=== PATIENT | female | born 1995 | race Caucasian/White ===

== ENCOUNTER 2024-07-19 17:50 | Emergency (ER) | payer MEDICAID, SELFPAY ==
[2024-07-19 17:51] VITALS: BP 154/95; PULSE 93; RESP 18; TEMP 36.3; O2SAT 100; BMI 19.6
[2024-07-19 19:00] VITALS: BP 130/86; PULSE 65; RESP 16; O2SAT 100
[2024-07-19 19:01] LABS: Mucous, Urine 0 SEEN /hpf (<or=2+); Red Blood Cells-Urine 0 SEEN /hpf (0-5)
[2024-07-19 19:11] LABS: Internal QC Validated? YES +Cl - CLEAR BKGD; Pregnancy, Urine Negative Negative; Record Kit Lot#,Urine Preg 947241
--- NOTE | 2024-07-19 19:16 | CT_ITS ---
PROCEDURE: BRAIN/HEAD WITHOUT CONTRAST 07/19/2024 REASON FOR EXAM: AMS TECHNIQUE: Head CT without intravenous contrast. Coronal and Sagittal reconstruction series were provided. One or more dose reduction techniques were used (e.g., Automated exposure control, adjustment of the mA and/or kV according to patient size, use of iterative reconstruction technique. RADIATION DOSE SUMMARY: CTDlvol: 44.99 mGy DLP: 846.73 mGycm COMPARISON: None. FINDINGS: The ventricles are normal in size and midline in position. No evidence of acute hemorrhage or infarction. No extra-axial blood or fluid collections. The paranasal sinuses are clear. The mastoid air cells are well aerated. The calvarial vault and skull base are intact. CT/Brain/Head without Contrast IMPRESSION: NO ACUTE FINDINGS Reading Location: [place] [id number]
[2024-07-19] MEDS: 0.9% Normal Saline (1000mL) 1,000 ML 999 ML IV (19:34)
--- NOTE | 2024-07-19 19:46 | EX.ED.DYSGE1 ---
HPI History of Present Illness Chief Complaint: Mental Health Narrative Narrative: Patient is a 29-year-old female with past medical history of ADHD who presents to the emergency department the chief complaint of altered mental status. According to patient's family members for the last several days she has not been sleeping she has received a total of 4 hours of sleep. 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 Patient states that she has been thinking a lot lately and under a lot of stress denies suicidal homicidal ideations. [facility] Medical History ADHD (attention deficit hyperactivity disorder) Home Medications ?Medication ?Instructions ?Recorded ?Last Taken ?Type lisdexamfetamine 40 mg capsule 40 mg PO DAILY 07/19/24 Unknown History (Julisa) Allergy/AdvReac Type Severity Reaction Status Date / Time amoxicillin Allergy Angioedema Verified 07/19/24 18:46 Surgical History H/O adenoidectomy Hx of tonsillectomy Social History Smoking Status: Current some day smoker tobacco type: e-cigarettes and smokeless tobacco ROS ROS ED ROS Narrative Constitutional: Denies fevers, chills, headaches, lightness, dizziness Eyes: Denies change in vision double vision blurry vision Cardiovascular: Denies chest pain Respiratory: Denies shortness of breath Abdomen: Denies abdominal pain nausea vomit diarrhea : Denies painful urination, hematuria compel area Neurological: Denies numbness, weakness, tingling Musculoskeletal: Denies back pain Skin: Denies rashes or lesions Psychiatric: States that she is seeing things but will not specifically say what she is seen denies suicidal homicidal ideations states that she has not been sleeping EXAM Physical Exam Narrative Exam Narrative: General: Patient lying in bed rest comfortably did not appear to be acute distress Head: Atraumatic, normocephalic Eyes: PERRL bilaterally, EOMI bilateral, no conjunctival injection noted Neck: Soft, supple, trachea midline Cardiovascular: Regular in rhythm no murmurs gallops rubs noted Respiratory: Clear to auscultation bilaterally Abdomen: Soft, nondistended, nontender to palpation Extremities: +5/5 strength noted in the bilateral upper and lower extremities Neurological: Patient following commands knew that she was at [facility] the year is 2024 Skin: Warm, dry, intact Psychiatric: Patient does have pressured speech, flat affect Const Vital Signs: 07/19/24 17:51 07/19/24 19:00 07/19/24 20:00 Temperature 97.3 F L Temperature Source Temporal Pulse Rate 93 65 62 Respiratory Rate 18 16 16 Blood Pressure 154/95 H 130/86 H 113/67 Blood Pressure Mean 114 100 82 Pulse Ox 100 100 100 Oxygen Delivery Method Room Air Room Air Room Air 07/19/24 21:00 Temperature Temperature Source Pulse Rate 61 Respiratory Rate 16 Blood Pressure 123/84 H Blood Pressure Mean 97 Pulse Ox 98 Oxygen Delivery Method Room Air MDM MDM MDM Narrative Medical decision making narrative: Patient is a 29-year-old female who presents to the emergency department chief complaint of not sleeping, altered mental status not acting her normal self. On the differential diagnose includes but not limited to bipolar disorder, intracranial lesion, electrolyte abnormality, , hyperthyroidism. Once workup is obtained reviewed she will be reevaluated. Patient CBC reviewed showed no evidence leukocytosis white blood count normal 8.9, he was 13.5, platelet count was 199. Patient sodium normal at 138, potassium normal 3.9, creatinine was normal at 0.79. Patient's AST and ALT are 21 and 15 respectively. Patient TSH normal at 1.90, free T4 and T3 were 1.90 and 4.1 respectively. Patient urinalysis reviewed showed no evidence of infection test was negative. Patient's drug screen presumptive positive for cannabis, alcohol level less than 10.1. Patient's CT head and brain without contrast showed no acute findings. Crisis came and evaluated the patient and they safety plan her. They gave her resources and advised her to follow-up which she is agreeable with this as well as family members at bedside. Crisis while I was in the room spoke with her fianc? who is also agreeable with this plan. Once again the patient is not homicidal nor suicidal. All question concerns answered she was discharged home in stable condition. Lab Data Labs: Laboratory Results - last 24 hr 07/19/24 07/19/24 18:55 19:30 WBC 8.9 RBC 4.58 Hgb 13.5 Hct 40.4 MCV 88.2 MCH 29.5 MCHC 33.4 RDW Std Deviation 42.9 RDW Coeff of Henry 13.2 Plt Count 199 MPV 11.0 Immature Gran % (Auto) 0.300 Neut % (Auto) 67.4 Lymph % (Auto) 24.5 [place] % (Auto) 6.3 Eos % (Auto) 1.1 Baso % (Auto) 0.4 Absolute Neuts (auto) 6.0 Absolute Lymphs (auto) 2.18 Nucleated RBC % 0 Sodium 138 Potassium 3.9 Chloride 105 Carbon Dioxide 21.1 Anion Gap 12 BUN 11 Creatinine 0.79 Estim Creat Clear Calc 101.30 Est GFR (MDRD) Non-Af 102 BUN/Creatinine Ratio 14.2 Glucose 96 Calcium 9.0 Total Bilirubin 0.49 AST 21 ALT 15 Alkaline Phosphatase 67 Total Protein 7.1 Albumin 4.5 Globulin 2.6 Albumin/Globulin Ratio 1.7 TSH 1.900 Free T4 1.90 H Free T3 pg/dL 4.1 H Urine Color Straw Urine Clarity Clear Urine pH 7.0 Ur Specific [place] 1.005 Urine Protein Negative Urine Glucose (UA) Normal Urine Ketones Negative Urine Occult Blood 50 H Urine Nitrite Negative Urine Bilirubin Negative Urine Urobilinogen Normal Ur Leukocyte Esterase Negative Urine RBC 0 SEEN Urine WBC 0-5 SEEN Ur Squamous Epith Cells 0-5 SEEN Urine Bacteria RARE Urine Mucus 0 SEEN Urine Test Negative Urine Opiates Screen NEGATIVE U Buprenorphine Qual NEGATIVE Ur Oxycodone Screen NEGATIVE Urine Methadone Screen NEGATIVE Urine Fentanyl Screen NEGATIVE Ur Barbiturates Screen NEGATIVE Ur Phencyclidine Scrn NEGATIVE Ur Amphetamines Screen NEGATIVE U Benzodiazepines Scrn NEGATIVE Urine Cocaine Screen NEGATIVE U Cannabinoids Screen PRESUMPTIVE POSITIVE Ethyl Alcohol < 10.1 Radiography Diagnostic Testing: Clinical Impression(s) from Imaging Studies Brain CT 07/19/24 19:16 IMPRESSION: NO ACUTE FINDINGS Reading Location: [place] [id number] Discharge Plan Triage Chief Complaint: Mental Health ED Provider: Rolo Maier Dx/Rx/DC Orders Clinical Impression: Anxiety, Depression Prescriptions: No Action lisdexamfetamine [Vyvanse] 40 mg capsule 40 mg PO DAILY Primary Care Provider: Ghulam Greco Referrals: Ghulam Greco DO [Primary Care Provider] - Activity Restrictions/Additional Instructions: Follow-up with resources provided to you by crisis. Return with worsening symptoms or any concerns. Your blood work did not show any acute abnormalities. Your CT of your head was normal. Print Language: Qatari Disposition Disposition: Home, Self Care
[2024-07-19 19:49] LABS: Absolute Lymphocyte Count 2.18 X10^3/uL (0.83-4.51); Basophil# 0.04 X10^3/uL; Basophil% 0.4 % (0-1); Eosinophils% 1.1 % (0-5); Hematocrit 40.4 % (37-47); Hemoglobin 13.5 g/dL (12.0-15.0); Lymphocyte # 2.18 X10^3/ul (0.83-4.51); Lymphocyte % 24.5 % (19-41); Mean Corp Hgb Conc 33.4 g/dL (32-36); Mean Corpuscular Hgb 29.5 pg (27.0-32.0); Mean Corpuscular Volume 88.2 fL (81-99); Monocyte# 0.56 X10^3/uL; Monocyte% 6.3 % (0-10); NRBC Flagged by Analyzer 0 % (0-5); Neutrophil % 67.4 % (47-70); Platelet Count 199 K/mm3 (150-450); RBC Distribution Width CV 13.2 % (11.6-14.6); RBC Distribution Width SD 42.9 fl (35.1-43.9); Red Blood Count 4.58 M/mm3 (4.2-5.4); White Blood Count 8.9 K/mm3 (4.4-11.0)
[2024-07-19 19:53] LABS: Color, Urine Straw (Yellow); Glucose, Dipstick Normal (Normal); Ketone-Dipstick Negative (Negative); Leukocyte Esterase-Dipstick Negative /ul (Negative); Nitrite-Dipstick Negative (Negative); Occult Blood-Urine 50 /ul (Negative); Protein-Dipstick Negative (Negative); Specific Gravity, Urine 1.005 (1.002-1.030); Urine Bilirubin Dipstick Negative (Negative); Urine Clarity Clear (Clear); Urine Urobilinogen Normal (Normal)
[2024-07-19 20:00] VITALS: BP 113/67; PULSE 62; RESP 16; O2SAT 100
[2024-07-19 20:12] LABS: Alcohol, Blood (Medical)-Serum < 10.1 mg/dL (<=10.0)
[2024-07-19 20:19] LABS: ALB/GLOB Ratio 1.7 RATIO (0.9-2.4); AST(SGOT) 21 U/L (<=31); Alanine Aminotransfer ALT/SGPT 15 U/L (<=34); Albumin, Serum 4.5 g/dL (3.5-5.0); Alkaline Phosphatase 67 U/L (35-104); Anion Gap 12 (5-15); BUN 11 mg/dL (4-19); BUN/Creat Ratio 14.2 RATIO (10-20); Carbon Dioxide 21.1 mmol/L (21.0-32.0); Chloride 105 mmol/L (98-108); Creatinine, Serum 0.79 mg/dL (0.70-1.20); EST Glomerular Filtration Rate 102 (>60); Free T3 4.1 pg/mL (2.18-3.98); Globulin 2.6 g/dL (2.2-4.2); Glucose 96 mg/dL (70-99); Potassium 3.9 mmol/L (3.3-5.1); Protein, Total 7.1 g/dL (5.9-8.4); Sodium Level 138 mmol/L (133-145); Total Bilirubin 0.49 mg/dL (0.00-1.30)
[2024-07-19 20:49] LABS: Bacteria RARE /hpf (None Seen); Squamous Epithelial Cells - UA 0-5 SEEN /hpf (5-10); White Blood Cells 0-5 SEEN /hpf (0-5)
[2024-07-19 20:58] LABS: Amphetamine Urine NEGATIVE (<1000 ng/mL); Barbiturate Urine NEGATIVE (< 200 ng/mL); Benzodiazepine Urine NEGATIVE (< 200 ng/mL); Buprenorphine Urine NEGATIVE (< 200 ng/mL); Cocaine Urine NEGATIVE (< 300 ng/mL); Fentanyl, Urine NEGATIVE; Methadone Urine NEGATIVE (< 300 ng/mL); Opiates Urine NEGATIVE (< 300 ng/mL); Oxycodone, Urine NEGATIVE (< 100 ng/mL); PCP Urine NEGATIVE (< 25 ng/mL); THC Urine PRESUMPTIVE POSITIVE (< 50 ng/mL)
[2024-07-19 21:00] VITALS: BP 123/84; PULSE 61; RESP 16; O2SAT 98
[2024-07-19 23:10] VITALS: BP 130/90; PULSE 53; RESP 16; TEMP 36.7; O2SAT 100
== END 2024-07-19 23:11 | disposition home or self-care (01) ==
PROVIDERS: Emergency Provider Emergency Medicine; PCP Student in an Organized Health Care Education/Training Program; Visit Provider Emergency Medicine
DX: F32.A Depression, unspecified (principal); F41.9 Anxiety disorder, unspecified; F90.9 Attention-deficit hyperactivity disorder, unspecified type; F17.220 Nicotine dependence, chewing tobacco, uncomplicated; F17.290 Nicotine dependence, other tobacco product, uncomplicated; Z79.899 Other long term (current) drug therapy
CPT/HCPCS: 70450; 80053; 80307; 81001; 81025; 82077; 84439; 84443; 84481; 85025; 96360; 99285; A4216